=== PATIENT | male | born 1975 | race Caucasian/White ===

== ENCOUNTER 2020-11-27 18:23 | Emergency (ER) | payer MEDICARE, OTHER, SELFPAY ==
--- NOTE | ~2020-11-27 | XR_ITS ---
EXAMINATION: XR ABDOMEN KUB CLINICAL INDICATION: Abdominal pain, nausea and vomiting COMPARISON: None TECHNIQUE: 2 views of the abdomen. FINDINGS: The bowel gas pattern is normal with no evidence of ileus or obstruction, although there is a paucity of gaseous small bowel. No unusual soft tissue calcifications are noted. Left total hip arthroplasty. Subchondral crescentic sclerotic line within the superior RIGHT femoral head reflects avascular necrosis. No evidence of cortical collapse. XR/XR KUB IMPRESSION: No evidence of bowel obstruction
[2020-11-27 18:47] VITALS: BP 149/87; PULSE 115; RESP 18; TEMP 36.8; O2SAT 96; BMI 34.3
[2020-11-27 22:11] LABS: Basophils Absolute Auto 0.1 X10*3/uL (0.0-0.2); Basophils Percent Auto 0.8 % (0-2); Eosinophils Absolute Auto 0.1 X10*3/uL (0.0-0.4); Eosinophils Percent Auto 1.4 % (0-4); Hematocrit 45.2 % (42-52); Imm Gran Abs Auto 0.02 X10*3/uL (0.00-0.03); Imm Gran Pct Auto 0.2 % (0.0-0.4); PLT CLUMP 1; SCAN SMEAR FLAG 1
[2020-11-27 22:13] LABS: Hemoglobin 15.8 g/dl (14.0-18.0); Lymphocytes Absolute Auto 1.2 X10*3/uL (1.2-4.9); Lymphocytes Percent Auto 13.9 % (20-40); Mean Corpuscular Hemoglobin 31.9 pg (27.0-33.0); Mean Corpuscular Volume 91.3 fL (80-98); Mean Platelet Volume 10.9 fL (9.4-12.4); Monocytes Absolute Auto 0.6 X10*3/uL (0.1-1.2); Monocytes Percent Auto 7.2 % (2-11); Neutrophils Absolute Auto 6.5 X10*3/uL (2.0-8.3); Neutrophils Percent Auto 76.5 % (45-73); Platelet Count 122 X10*3/uL (160-400); Red Blood Count 4.95 X10*6/uL (4.60-5.80); White Blood Count 8.5 X10*3/uL (4.8-10.8)
[2020-11-27 22:14] LABS: MANUAL DIFF FLAG NO
--- NOTE | 2020-11-27 22:15 | ED_ITS ---
HPI - Abdominal Pain General Chief Complaint: Abdominal Pain Stated Complaint: abd pain - chrome disease Time Seen by Provider: 11/27/20 21:43 Source: patient and family Mode of arrival: ambulatory Limitations: no limitations History of Present Illness HPI narrative: 45 y/o male with history of Crohn's disease, history of bowel obstrcutions, s/p 30 abdominal surgeries, history of hip AVN with plan for right hip replacement, currently off of all medications for his Crohn's who presents to the ER with 2 weeks of right sided abdominal pain. He lives in [place] where he gets his care and is in the process of relocating here. [place] 2 [place] ago when the pain started. He had a CT scan with oral contrast that showed some inflamed bowel. He was started on Cipro and Flagyl and remains on it for another few days. He reports ongoing pain with some nausea, vomiting and diarrhea. His stool is described as broken up fish food. No blood. He denies fever, chills, urinary symptoms. MD elicited complaint: abdominal pain Pertinent past history: other (Crohns) Onset (ago): week(s) (2) Pain Consistency: constant Location: RUQ and RLQ Severity: moderate Pain scale (0-10): 7 Quality: cramping and stabbing Radiation: none Migration to: no migration Exacerbating factors: nothing Relieving factors: nothing Context: recent antibiotic use and history of similar episodes Associated symptoms: nausea, vomiting and diarrhea Related Data Previous Rx's Medication Instructions Recorded oxycodone 5 mg PO Q6H PRN #5 tab 11/28/20 Allergies Allergy/AdvReac Type Severity Reaction Status Date / Time diazepam [From VALIUM] Allergy Severe AGITATION Unverified 01/20/20 19:09 morphine [MORPHINE] Allergy Intermediate SWELLING Unverified 01/20/20 19:09 Penicillins [PENICILLINS] Allergy Unknown ANAPHYLAXIS Unverified 01/20/20 19:09 Review of Systems Review of Systems Constitutional: No Fever, No Chills ENT/Mouth: No sore throat, No Rhinorrhea, No Swallowing Difficulty Eyes: No Eye Pain, No Swelling, No Redness Cardiovascular: No Chest Pain, No SOB, No Orthopnea, No Edema Respiratory: No Cough, No Sputum, No Wheezing, No dyspnea Gastrointestinal: + Nausea, + Vomiting, + Diarrhea, + abdominal Pain, No Hematochezia, No Melena Genitourinary: No Dysuria, No Urinary Frequency, No Hematuria Musculoskeletal: No joint pain, No Myalgias Skin: No Skin Lesions, No rash Neuro: No Weakness, No Numbness, No Dizziness, No Headache Psych: No Anxiety/Panic, No Depression Heme/Lymph: No Bruising, No Lymphadenopathy Endocrine: No Polyuria, No Polydipsia Physical Exam Vital Signs: Vital Signs: Last Vital Signs Temp 98.3 F 11/27/20 18:47 Pulse 115 H 11/27/20 18:47 Resp 20 11/27/20 23:48 BP 149/87 H 11/27/20 18:47 Pulse Ox 96 11/27/20 18:47 Body Mass Index 34.3 Appearance: Alert. Oriented X3. No acute distress. Eyes: Pupils equal, round and reactive to light. ENT: Pharynx normal. Neck: Normal inspection. Neck supple. CVS: Normal heart rate and rhythm. Pulses normal. Respiratory: No respiratory distress. Breath sounds normal. Abdomen: Well healed surgical scars c/w prior operations, Soft with right sided tenderness, +guarding, no rebound, decreased but present +BS x4 Skin: Skin warm and dry. Normal skin color. Normal skin turgor. No rashes. Extremities: No lower extremity edema. Neuro: Oriented X 3. No motor deficit. No sensory deficit. Course Course Course Narrative: 45 y/o male with a complex GI history with multiple surgeries and Crohn's disease who presents with 2 weeks of ongoing abdominal pain, worsened today. N/V/D. Pain is not as bad as when he had bowel obstructions in the past. He does not want a CT scan given he has had multiple CT scans recently. He appears comfortable and there is no significant distention or tympany on exam. Reevaluation(s) Reevaluation #1: KUB did not show any obstruction. Labs unremarkable. 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 He again reports he does not want a CT scan and that he would like to be discharged so he can go to [place] to see his GI doctor tomorrow. He has not had any vomiting and his pain is improved with IV Pain medication. He is tolerating ice water. Tachycardia resolved. He is stable for discharge home. MDM - Abdominal Pain Lab Data Result diagrams: 11/27/20 21:55 11/27/20 21:55 Labs: Lab Results 11/27/20 11/27/20 11/27/20 Range/Units 21:55 21:55 21:55 WBC 8.5 (4.8-10.8) X10*3/uL RBC 4.95 (4.60-5.80) X10*6/uL Hgb 15.8 (14.0-18.0) g/dl Hct 45.2 (42-52) % MCV 91.3 (80-98) fL MCH 31.9 (27.0-33.0) pg MCHC 35.0 (31.0-36.0) g/dl RDW 14.0 (11.0-16.0) % Plt Count 122 L (160-400) X10*3/uL MPV 10.9 (9.4-12.4) fL Immature Gran % (Auto) 0.2 (0.0-0.4) % Neut % (Auto) 76.5 H (45-73) % Lymph % (Auto) 13.9 L (20-40) % [place] % (Auto) 7.2 (2-11) % Eos % (Auto) 1.4 (0-4) % Baso % (Auto) 0.8 (0-2) % Lymph # (Auto) 1.2 (1.2-4.9) X10*3/uL [place] # (Auto) 0.6 (0.1-1.2) X10*3/uL Eos # (Auto) 0.1 (0.0-0.4) X10*3/uL Baso # (Auto) 0.1 (0.0-0.2) X10*3/uL Abs Immat Gran (auto) 0.02 (0.00-0.03) X10*3/uL Absolute Neuts (auto) 6.5 (2.0-8.3) X10*3/uL Absolute Nucleated RBC 0.000 (0.0-0.012) X10*3/uL Nucleated RBC % (auto) 0.0 (0.0-0.2) /100WBC ESR 7 (0-15) MM/HR Sodium 138 (135-145) mmol/L Potassium 4.5 (3.3-5.1) mmol/L Chloride 109 H (96-108) mmol/L Carbon Dioxide 19 L (22-29) mmol/L Anion Gap 15 (12-20) BUN 6 L (9-16) mg/dL Creatinine 0.81 (0.5-1.4) mg/dL Estim Creat Clear Calc 163.8 Estimated GFR > 60 Random Glucose 131 H (60-115) mg/dL Lactic Acid (0.5-2.0) mmol/L Calcium 9.1 (8.4-10.2) mg/dL Total Bilirubin 2.1 H (0.0-1.0) mg/dL AST 27 (5-37) U/L ALT 17 (0-40) U/L Alkaline Phosphatase 131 H (39-117) U/L C-Reactive Protein 0.11 (< or = 0.50) mg/dL Total Protein 8.1 H (6.5-8.0) g/dL Albumin 3.7 (3.5-5.0) g/dL Lipase 19 (8-78) U/L 11/27/20 Range/Units 21:55 WBC (4.8-10.8) X10*3/uL RBC (4.60-5.80) X10*6/uL Hgb (14.0-18.0) g/dl Hct (42-52) % MCV (80-98) fL MCH (27.0-33.0) pg MCHC (31.0-36.0) g/dl RDW (11.0-16.0) % Plt Count (160-400) X10*3/uL MPV (9.4-12.4) fL Immature Gran % (Auto) (0.0-0.4) % Neut % (Auto) (45-73) % Lymph % (Auto) (20-40) % [place] % (Auto) (2-11) % Eos % (Auto) (0-4) % Baso % (Auto) (0-2) % Lymph # (Auto) (1.2-4.9) X10*3/uL [place] # (Auto) (0.1-1.2) X10*3/uL Eos # (Auto) (0.0-0.4) X10*3/uL Baso # (Auto) (0.0-0.2) X10*3/uL Abs Immat Gran (auto) (0.00-0.03) X10*3/uL Absolute Neuts (auto) (2.0-8.3) X10*3/uL Absolute Nucleated RBC (0.0-0.012) X10*3/uL Nucleated RBC % (auto) (0.0-0.2) /100WBC ESR (0-15) MM/HR Sodium (135-145) mmol/L Potassium (3.3-5.1) mmol/L Chloride (96-108) mmol/L Carbon Dioxide (22-29) mmol/L Anion Gap (12-20) BUN (9-16) mg/dL Creatinine (0.5-1.4) mg/dL Estim Creat Clear Calc Estimated GFR Random Glucose (60-115) mg/dL Lactic Acid 1.5 (0.5-2.0) mmol/L Calcium (8.4-10.2) mg/dL Total Bilirubin (0.0-1.0) mg/dL AST (5-37) U/L ALT (0-40) U/L Alkaline Phosphatase (39-117) U/L C-Reactive Protein (< or = 0.50) mg/dL Total Protein (6.5-8.0) g/dL Albumin (3.5-5.0) g/dL Lipase (8-78) U/L Discharge Plan Discharge Clinical Impression: Abdominal pain Qualifiers: Abdominal location: unspecified location Qualified Code(s): R10.9 - Unspecified abdominal pain Patient Disposition: Home, Self-Care Instructions: Crohn Disease (ED), Abdominal Pain (ED) Additional Instructions: Your lab workup today was largely unremarkable. Your abdominal x-ray was normal. FOLLOW UP WITH YOUR GI DOCTOR TOMORROW. If you develop new or worsening symptoms call 911 or come back to the ER for further evaluation. Prescriptions: New oxycodone 5 mg tablet 5 mg PO Q6H PRN (Reason: pain) Qty: 5 RF: 0 PMFSH Past Medical History Attestation statement: The following information was validated with the patient. Medical History Acute Crohn's disease Avascular necrosis HTN (hypertension) Surgical History (Updated 11/27/20 @ 18:52 by Elizabeth Kumari) History of bowel resection Hx of cholecystectomy S/P shoulder surgery Social History Social History Advance Directives: No Advance Directives Information Provided: No
[2020-11-27] MEDS: Pantoprazole Sodium 40 MG/10 ML VIAL IVPUSH (22:29)
[2020-11-27] MEDS: HYDROmorphone HCl 1 MG/ML SYRINGE IVPUSH ×2 (22:29→23:48)
[2020-11-27] MEDS: 0.9 % Sodium Chloride 1,000 ML 999 ML IVCONT ×2 (22:30→22:41)
[2020-11-27 22:33] LABS: Lactic Acid 1.5 mmol/L (0.5-2.0)
[2020-11-27 22:40] LABS: Alanine Aminotransferase 17 U/L (0-40); Albumin Level 3.7 g/dL (3.5-5.0); Alkaline Phosphatase 131 U/L (39-117); Anion Gap 15 (12-20); Aspartate Amino Transferase 27 U/L (5-37); Bilirubin Total 2.1 mg/dL (0.0-1.0); Blood Urea Nitrogen 6 mg/dL (9-16); C Reactive Protein 0.11 mg/dL (< or = 0.50); Calcium 9.1 mg/dL (8.4-10.2); Carbon Dioxide 19 mmol/L (22-29); Chloride 109 mmol/L (96-108); Creatinine Clr Calc Pharmacy 163.8; Estimated Glomerular Filt Rate > 60; Glucose Random 131 mg/dL (60-115); Lipase 19 U/L (8-78); Potassium 4.5 mmol/L (3.3-5.1); Sodium 138 mmol/L (135-145); Total Protein 8.1 g/dL (6.5-8.0)
[2020-11-27 23:03] LABS: Erythrocyte Sedimentation Rate 7 MM/HR (0-15)
[2020-11-27 23:48] VITALS: RESP 20
[2020-11-28 00:35] VITALS: BP 131/94; PULSE 111; RESP 16; O2SAT 99
== END 2020-11-28 02:17 | disposition home or self-care (01) ==
PROVIDERS: Physician Assistant; Emergency Provider Student in an Organized Health Care Education/Training Program
DX: R10.9 Unspecified abdominal pain (principal); K50.90 Crohn's disease, unspecified, without complications; I10 Essential (primary) hypertension; Z90.49 Acquired absence of other specified parts of digestive tract
CPT/HCPCS: 36415; 74018; 80053; 83605; 83690; 85025; 85652; 86140; 87040; 96361; 96374; 96375; 96376; 99284; J1170; J2405

== ENCOUNTER 2020-12-03 14:24 | Emergency (ER) | payer MEDICARE, OTHER, SELFPAY ==
[2020-12-03 15:04] VITALS: BP 158/87; PULSE 107; RESP 18; TEMP 35.8; O2SAT 100; BMI 33.7
--- NOTE | 2020-12-03 17:22 | ECG_ITS ---
Test Reason : SYNCOPE Blood Pressure : / mmHG Vent. Rate : 100 BPM Atrial Rate : 100 BPM P-R Int : 144 ms QRS Dur : 094 ms QT Int : 372 ms P-R-T Axes : 028 022 006 degrees QTc Int : 479 ms Normal sinus rhythm Inferior infarct (cited on or before 03-DEC-2020) Abnormal ECG When compared with ECG of 22-OCT-2016 14:28, No significant change was found Referred By: Wesly Orellana Electronically Signed By:Nuno Sky
--- NOTE | 2020-12-03 17:23 | ED_ITS ---
HPI - General Adult General Chief complaint: General Medical Stated complaint: seizure Time Seen by Provider: 12/03/20 17:06 Source: patient Mode of arrival: ambulatory Limitations: no limitations History of Present Illness HPI narrative: 45-year-old male who presents emergency department for evaluation of syncopal episode and abdominal pain secondary to his Crohn's disease The patient has a history of Crohn's disease with multiple surgeries and multiple episodes of small-bowel obstructions in the past. He states that he has been having a flare-up of his Crohn's disease over the past 2 weeks and has been hav ing right lower quadrant abdominal pain. The patient lives in the [place] area is in the process of moving to this area. He states that his vocal music teacher in [place] cancel is planning on doing a colonoscopy on him next week since she believes that he has a ?tight area causing his abdominal pain. The patient had recent CT scan in the your. The patient was seen here on 11/27/2020 with abdominal pain. The patient had a KUB that showed no bowel obstruction and unremarkable blood work. He states that he was treated with pain medications and felt better at the time of discharge. Patient states that he woke up this morning with increased pain in his right lower quadrant area. He states the pain was severe. The patient then had a syncopal episode. According to the patient, his described the syncopal episode as the patient turning rigid and the patient then dropped. The patient states he has had similar episodes in the past and is being treated for possible seizure/pseudoseizures with [place] and he does have a neurologist in [place]. Patient states that the syncopal episode was brief and lasted 15 seconds. He did not have any postictal period. He does not have any memory of any prodromal symptoms. He is currently complaining right lower quadrant pain which he describes the abdominal pain as a constant, pressure-like sensation which is 7/10. The patient denied fever, chills, nausea, vomiting or change in his bowel movements. Related Data Previous Rx's Medication Instructions Recorded oxycodone 5 mg tablet 5 mg PO Q6H PRN #5 tab 11/28/20 Allergies Allergy/AdvReac Type Severity Reaction Status Date / Time diazepam [From VALIUM] Allergy Severe AGITATION Verified 12/03/20 17:48 morphine [MORPHINE] Allergy Intermediate SWELLING Verified 12/03/20 17:48 Penicillins [PENICILLINS] Allergy Unknown ANAPHYLAXIS Verified 12/03/20 17:48 Review of Systems Review of Systems: Yes all other systems are reviewed and are negative [facility] Past Medical History [facility] Narrative: Social history: Patient is . He lives in the [place] and is in the process of moving to this area. He denies tobacco, alcohol and drug use. Medical History Acute Crohn's disease Avascular necrosis HTN (hypertension) Surgical History History of bowel resection Hx of cholecystectomy S/P shoulder surgery Social History Social History Advance Directives: No Advance Directives Information Provided: Yes Physical Exam Vital Signs: Vital Signs: Last Vital Signs Temp 98.7 F 12/03/20 20:11 Pulse 93 12/03/20 21:19 Resp 12 12/03/20 21:19 BP 152/97 H 12/03/20 21:19 Pulse Ox 97 12/03/20 21:19 Body Mass Index 33.7 Const: General: cooperative and no acute distress Orientation/consciousness: oriented to person and oriented to place Limitations: no limitations HENMT: Head: Yes normal to inspection, Yes normocephalic and Yes atraumatic Ears: external ears normal General nose exam: Normal external nose present Face and sinus: Yes normal facial exam Mouth: Normal oral and palatal mucosa present Throat: Yes posterior oropharynx normal Eyes: General: appearance normal, both eyes and all related structures Pupils: Equal, round and reactive pupils present Neck: Neck: Yes normal visual inspection, Yes no lymphadenopathy, Yes trachea midline and Yes supple Chest: Chest palpation & inspection: normal inspection of the chest and normal palpation of entire chest wall Resp: Effort & Inspection: normal respiratory effort and able to speak in complete sentences Auscultation: clear to auscultation bilaterally Cardio: Rate: regular rate Rhythm: regular rhythm Heart sounds: S1 normal heart sound present, S2 normal heart sound present and no murmurs GI: Inspection: Yes normal to inspection Palpation (GI): Soft to palpation, Tenderness to palpation present (GI) in the RLQ (Moderate); Negative for with no rebound tenderness and no guarding Auscultation: normal bowel sounds : General: Yes no CVA tenderness Back/Spine/Pelvis: Back: no CVA tenderness Skin: General skin exam: no rashes or lesions noted Neuro: General: oriented to person and oriented to place Cranial nerves: Yes CN's II-XII intact bilaterally and Yes Equal, round and reactive pupils present Cognition (Neuro): normal cognition Motor exam (neuro): 5/5 motor strength present throughout Extrem: General: Yes normal to inspection Psych: Appearance: grossly normal Speech and movement: Normal speech and movement present Affect: normal affect Attitude: cooperative Thought process: Normal thought process present Thought content: Normal thought content present Course Course Course Narrative: 45-year-old male who presents emergency department for evaluation of right lower quadrant abdominal pain and a syncopal episode. Patient's abdominal pain is related to his Crohn's disease and is currently being evaluated by his vocal music teacher in your and is scheduled for a colonoscopy next week. The patient's syncopal episode was preceded by severe abdominal pain and lasted approximately 15 seconds. My impression is that this was a vasovagal event secondary to his pain. The patient is having right lower quadrant pain and tenderness but I believe this is related to his Crohn's disease. I did order laboratory evaluation to include CBC, CMP, lipase, troponin and EKG. I do not think that the patient needs any imaging studies at this time. The patient will be treated with Pepcid 20 mg IV, Dilaudid 1 mg IV, and Zofran 12 mg IV. He will also be given normal saline x1 L. He states that this is the regimen that he has received in the past when he has had pain related to his Crohn's disease. 2123: Patient's laboratory evaluation was unremarkable except for an elevated bili remove 2.3, sat similar elevations in the past. Patient got only minimal relief with the 1st dose of medications. He was given a 2nd dose Dilaudid 1 mg IV. He also received Reglan 10 mg IV and Benadryl 25 mg IV. He is feeling better and is requesting to go home. The patient will be discharged home he was advised to follow up with his GI doctor for further evaluation. The patient was given verbal and printed instructions prior to discharge. The patient was advised to follow-up with his PCP in 2 days and to return to the emergency department if his symptoms get worse or if he develops any new symptoms that are concerning to him. Medical Decision Making Lab Data Result diagrams: 12/03/20 18:22 12/03/20 18:22 Labs: Lab Results 12/03/20 12/03/20 12/03/20 Range/Units 17:35 18:22 18:22 WBC 5.3 (4.8-10.8) X10*3/uL RBC 4.34 L (4.60-5.80) X10*6/uL Hgb 13.8 L (14.0-18.0) g/dl Hct 39.7 L (42-52) % MCV 91.5 (80-98) fL MCH 31.8 (27.0-33.0) pg MCHC 34.8 (31.0-36.0) g/dl RDW 13.7 (11.0-16.0) % Plt Count 101 L (160-400) X10*3/uL MPV 10.9 (9.4-12.4) fL Immature Gran % (Auto) 0.6 H (0.0-0.4) % Neut % (Auto) 74.1 H (45-73) % Lymph % (Auto) 18.1 L (20-40) % [place] % (Auto) 5.8 (2-11) % Eos % (Auto) 0.6 (0-4) % Baso % (Auto) 0.8 (0-2) % Lymph # (Auto) 1.0 L (1.2-4.9) X10*3/uL [place] # (Auto) 0.3 (0.1-1.2) X10*3/uL Eos # (Auto) 0.0 (0.0-0.4) X10*3/uL Baso # (Auto) 0.0 (0.0-0.2) X10*3/uL Abs Immat Gran (auto) 0.03 (0.00-0.03) X10*3/uL Absolute Neuts (auto) 3.9 (2.0-8.3) X10*3/uL Absolute Nucleated RBC 0.000 (0.0-0.012) X10*3/uL Nucleated RBC % (auto) 0.0 (0.0-0.2) /100WBC Smear Tech's Comments VERIFIED Sodium 137 (135-145) mmol/L Potassium 4.1 (3.3-5.1) mmol/L Chloride 107 (96-108) mmol/L Carbon Dioxide 20 L (22-29) mmol/L Anion Gap 14 (12-20) BUN 12 D (9-16) mg/dL Creatinine 0.77 (0.5-1.4) mg/dL Estim Creat Clear Calc 170.8 Estimated GFR > 60 Random Glucose 115 (60-115) mg/dL Calcium 8.9 (8.4-10.2) mg/dL Total Bilirubin 2.3 H (0.0-1.0) mg/dL AST 30 (5-37) U/L ALT 17 (0-40) U/L Alkaline Phosphatase 112 (39-117) U/L Troponin I High Sens < 3.5 (<3.5-35.0) ng/L Total Protein 7.5 (6.5-8.0) g/dL Albumin 3.5 (3.5-5.0) g/dL Lipase 26 (8-78) U/L ECG Data Attestation: I personally reviewed and interpreted this ECG as follows: Interpretation: 1732: Sinus tachycardia with a rate of 100, normal OH interval, QRS duration, prolonged QTC of 479 milliseconds. Q-wave noted in lead 3 and AVF, inverted T-wave lead 3 and V1, no PACs, no PVCs, no ST segment elevation, no ST segment depression. No old EKG for comparison. Discharge Plan Discharge Clinical Impression: Crohn's disease Abdominal pain Qualifiers: Abdominal location: right lower quadrant Qualified Code(s): R10.31 - Right lower quadrant pain Patient Disposition: Home, Self-Care Instructions: Abdominal Pain (ED) Additional Instructions: Your laboratory evaluation was unremarkable and unchanged from your previous visit. Follow-up with your doctor in 2 days. Please return to the emergency department if your symptoms get worse or if you develop any symptoms that are concerning to you. Prescriptions: No Action oxycodone 5 mg tablet 5 mg PO Q6H PRN (Reason: pain) Qty: 5 RF: 0
[2020-12-03] MEDS: HYDROmorphone HCl 1 MG/ML SYRINGE IVPUSH ×2 (17:56→20:15)
[2020-12-03] MEDS: 0.9 % Sodium Chloride 1,000 ML 999 ML IV (17:57)
[2020-12-03] MEDS: Famotidine/PF 20 MG/2 ML VIAL IVPUSH (17:57)
--- NOTE | 2020-12-03 17:58 | PC.NURSE ---
IV inserted. pt medicated for nausea and pain
[2020-12-03 18:22] VITALS: BP 151/106; PULSE 100; RESP 18; TEMP 36.9; O2SAT 98
[2020-12-03 18:29] LABS: Troponin-I High Sensitivity < 3.5 ng/L (<3.5-35.0)
[2020-12-03 18:38] LABS: Hematocrit 39.7 % (42-52); MANUAL DIFF FLAG SCAN; Mean Corpuscular Volume 91.5 fL (80-98); PLT CLUMP 1; Red Blood Count 4.34 X10*6/uL (4.60-5.80); SCAN SMEAR FLAG 1
[2020-12-03 18:40] LABS: Basophils Percent Auto 0.8 % (0-2); Eosinophils Percent Auto 0.6 % (0-4); Hemoglobin 13.8 g/dl (14.0-18.0); Imm Gran Abs Auto 0.03 X10*3/uL (0.00-0.03); Imm Gran Pct Auto 0.6 % (0.0-0.4); Lymphocytes Percent Auto 18.1 % (20-40); Mean Corpuscular HGB Conc 34.8 g/dl (31.0-36.0); Mean Corpuscular Hemoglobin 31.8 pg (27.0-33.0); Mean Platelet Volume 10.9 fL (9.4-12.4); Monocytes Absolute Auto 0.3 X10*3/uL (0.1-1.2); Monocytes Percent Auto 5.8 % (2-11); Neutrophils Absolute Auto 3.9 X10*3/uL (2.0-8.3); Neutrophils Percent Auto 74.1 % (45-73); Platelet Count 101 X10*3/uL (160-400); Red Cell Distribution Width 13.7 % (11.0-16.0); White Blood Count 5.3 X10*3/uL (4.8-10.8)
[2020-12-03 18:46] LABS: SLIDE REVIEW VERIFIED
--- NOTE | 2020-12-03 18:56 | PC.NURSE ---
Pt reporting that he continues to have pain and nausea. MD aware.
[2020-12-03 18:59] LABS: Alanine Aminotransferase 17 U/L (0-40); Albumin Level 3.5 g/dL (3.5-5.0); Alkaline Phosphatase 112 U/L (39-117); Anion Gap 14 (12-20); Aspartate Amino Transferase 30 U/L (5-37); Bilirubin Total 2.3 mg/dL (0.0-1.0); Blood Urea Nitrogen 12 mg/dL (9-16); Calcium 8.9 mg/dL (8.4-10.2); Carbon Dioxide 20 mmol/L (22-29); Chloride 107 mmol/L (96-108); Creatinine Clr Calc Pharmacy 170.8; Estimated Glomerular Filt Rate > 60; Glucose Random 115 mg/dL (60-115); Lipase 26 U/L (8-78); Potassium 4.1 mmol/L (3.3-5.1); Sodium 137 mmol/L (135-145); Total Protein 7.5 g/dL (6.5-8.0)
[2020-12-03 20:11] VITALS: BP 169/92; PULSE 89; RESP 15; TEMP 37.1; O2SAT 98
[2020-12-03] MEDS: Metoclopramide HCl 10 MG/2 ML VIAL IVPUSH (20:15)
[2020-12-03] MEDS: diphenhydrAMINE HCL 50 MG/ML VIAL IVPUSH (20:15)
[2020-12-03 21:19] VITALS: BP 152/97; PULSE 93; RESP 12; O2SAT 97
== END 2020-12-03 21:45 | disposition home or self-care (01) ==
PROVIDERS: Emergency Provider Emergency Medicine Emergency Medical Services
DX: K50.10 Crohn's disease of large intestine without complications (principal); R55 Syncope and collapse; R10.31 Right lower quadrant pain
CPT/HCPCS: 36415; 80053; 83690; 84484; 85025; 93005; 96365; 96375; 99284; J1170; J1200; J2405; J2765

== ENCOUNTER 2023-11-24 15:38 | Emergency (ER) | payer SELFPAY ==
--- NOTE | 2023-11-24 15:39 | ECG_ITS ---
Test Reason : CP Blood Pressure : / mmHG Vent. Rate : 110 BPM Atrial Rate : 110 BPM P-R Int : 140 ms QRS Dur : 094 ms QT Int : 342 ms P-R-T Axes : 037 029 021 degrees QTc Int : 462 ms Sinus tachycardia Possible Inferior infarct (cited on or before 03-DEC-2020) Abnormal ECG When compared with ECG of 03-DEC-2020 17:32, No significant change was found Referred By: Aline Dumont Electronically Signed By:LOUISE DIAZ
[2023-11-24 16:04] VITALS: BP 129/94; PULSE 112; RESP 18; TEMP 37.2; O2SAT 98; BMI 33.2
--- NOTE | 2023-11-24 16:07 | ED_ITS ---
HPI - Abdominal Pain General Chief Complaint: Abdominal Pain Stated Complaint: CP, back pain Related Data Previous Rx's ?Medication ?Instructions ?Recorded oxycodone 5 mg tablet 5 mg PO Q6H PRN pain #5 tabs 11/28/20 Allergies Allergy/AdvReac Type Severity Reaction Status Date / Time diazepam [From VALIUM] Allergy Severe AGITATION Verified 11/24/23 16:08 morphine [MORPHINE] Allergy Intermediate SWELLING Verified 11/24/23 16:08 Penicillins [PENICILLINS] Allergy Unknown ANAPHYLAXIS Verified 11/24/23 16:08 [facility] Past Medical History Medical History Acute Crohn's disease Avascular necrosis HTN (hypertension) Surgical History History of bowel resection Hx of cholecystectomy S/P shoulder surgery Social History Social History Advance Directives: No Advance Directives Information Provided: No Do you have a plan to hurt others: No Plan Physical Exam ED Vital Signs: Vital Signs - 24 hr 11/24/23 16:04 Temperature 98.9 F Pulse Rate 112 H Respiratory Rate 18 Blood Pressure 129/94 H Pulse Oximetry 98 Oxygen Delivery Method Room Air BMI result Body Mass Index 33.2 Course Course Course Narrative: This is an RME: Additional HPI, ROS, PE not included below will be deferred to primary provider. RME assessment and note performed by: Aline Dumont PA-C This is a [id number], with a hx of crohn's disease, avascular necrosis, HTN, who presents to the ER with complaints of abdominal pain, nausea x 3 weeks. reporting body aches. Pain worsened today and felt pain throughout his chest. Reporting sweats, no chills. hx of crohns, sxs feel similar to flare ups. Plan: Labs, UA, viral swabs, further er eval needed Reevaluation(s) Reevaluation #1: Patient left without completing treatment. Medical Decision Making Lab Data 11/24/23 16:18 11/24/23 16:18 Labs: Lab Results 11/24/23 Range/Units 16:18 WBC 5.1 (4.8-10.8) X10*3/uL RBC 4.25 L (4.60-5.80) X10*6/uL Hgb 13.7 L (14.0-18.0) g/dl Hct 39.1 L (42.0-52.0) % MCV 92.0 (80.0-98.0) fL MCH 32.2 (27.0-33.0) pg MCHC 35.0 (31.0-36.0) g/dl RDW 13.7 (11.0-16.0) % Plt Count 84 L (160-400) X10*3/uL MPV 10.0 (9.4-12.4) fL Immature Gran % (Auto) 0.2 (0.0-0.4) % Neut % (Auto) 71.8 (45-73) % Lymph % (Auto) 18.5 L (20-40) % [place] % (Auto) 7.1 (2-11) % Eos % (Auto) 1.8 (0-4) % Baso % (Auto) 0.6 (0-2) % Lymph # (Auto) 0.9 L (1.2-4.9) X10*3/uL [place] # (Auto) 0.4 (0.1-1.2) X10*3/uL Eos # (Auto) 0.1 (0.0-0.4) X10*3/uL Baso # (Auto) 0.0 (0.0-0.2) X10*3/uL Abs Immat Gran (auto) 0.01 (0.00-0.03) X10*3/uL Absolute Neuts (auto) 3.6 (2.0-8.3) x10*3/uL Absolute Nucleated RBC 0.000 (0.0-0.012) X10*3/uL Nucleated RBC % (auto) 0.0 (0.0-0.2) /100WBC Sodium 137 (135-145) mmol/L Potassium 3.6 (3.3-5.1) mmol/L Chloride 108 (96-108) mmol/L Carbon Dioxide 20 L (22-29) mmol/L Anion Gap 13 (12-20) BUN 8 L (9-16) mg/dL Creatinine 0.92 (0.5-1.4) mg/dL Estim Creat Clear Calc 141.1 Estimated GFR > 60 Random Glucose 141 H (60-115) mg/dL Calcium 9.0 (8.4-10.2) mg/dL Magnesium 1.5 L (1.6-2.6) mg/dL Total Bilirubin 1.6 H (0.0-1.0) mg/dL Direct Bilirubin 0.5 (0.0-0.5) mg/dL AST 25 (5-37) U/L ALT 21 (0-40) U/L Alkaline Phosphatase 86 (39-117) U/L Troponin I High Sens < 2.7 (<3.5-35.0) ng/L Total Protein 7.0 (6.5-8.0) g/dL Albumin 3.3 L (3.5-5.0) g/dL Lipase 14 (8-78) U/L Influenza Type A (PCR) NEGATIVE (Negative) Influenza Type B (PCR) NEGATIVE (Negative) RSV RNA Qual (PCR) NEGATIVE (Negative) SARS-CoV-2 RNA (RT-PCR) NEGATIVE (Negative) Discharge Plan Discharge Clinical Impression: Abdominal pain Patient Disposition: Left W/O Completing Treatment Prescriptions: No Action oxycodone 5 mg tablet 5 mg PO Q6H PRN (Reason: pain) Qty: 5 0RF Rx Instructions: partial fill ok Discharge Date/Time: 11/24/23 18:31
[2023-11-24 16:22] LABS: MANUAL DIFF FLAG NO
[2023-11-24 16:30] LABS: Basophils Percent Auto 0.6 % (0-2); Eosinophils Absolute Auto 0.1 X10*3/uL (0.0-0.4); Eosinophils Percent Auto 1.8 % (0-4); Hematocrit 39.1 % (42.0-52.0); Hemoglobin 13.7 g/dl (14.0-18.0); Imm Gran Abs Auto 0.01 X10*3/uL (0.00-0.03); Imm Gran Pct Auto 0.2 % (0.0-0.4); Lymphocytes Absolute Auto 0.9 X10*3/uL (1.2-4.9); Lymphocytes Percent Auto 18.5 % (20-40); Mean Corpuscular Hemoglobin 32.2 pg (27.0-33.0); Monocytes Absolute Auto 0.4 X10*3/uL (0.1-1.2); Monocytes Percent Auto 7.1 % (2-11); Neutrophils Absolute Auto 3.6 x10*3/uL (2.0-8.3); Neutrophils Percent Auto 71.8 % (45-73); Red Blood Count 4.25 X10*6/uL (4.60-5.80); Red Cell Distribution Width 13.7 % (11.0-16.0); White Blood Count 5.1 X10*3/uL (4.8-10.8)
[2023-11-24 16:39] LABS: Alanine Aminotransferase 21 U/L (0-40); Albumin Level 3.3 g/dL (3.5-5.0); Alkaline Phosphatase 86 U/L (39-117); Anion Gap 13 (12-20); Aspartate Amino Transferase 25 U/L (5-37); Bilirubin Direct 0.5 mg/dL (0.0-0.5); Bilirubin Total 1.6 mg/dL (0.0-1.0); Blood Urea Nitrogen 8 mg/dL (9-16); Carbon Dioxide 20 mmol/L (22-29); Chloride 108 mmol/L (96-108); Creatinine Clr Calc Pharmacy 141.1; Estimated Glomerular Filt Rate > 60; Glucose Random 141 mg/dL (60-115); Lipase 14 U/L (8-78); Magnesium 1.5 mg/dL (1.6-2.6); Potassium 3.6 mmol/L (3.3-5.1); Sodium 137 mmol/L (135-145)
[2023-11-24 16:47] LABS: Platelet Count 84 X10*3/uL (160-400)
[2023-11-24 16:49] LABS: Troponin-I High Sensitivity < 2.7 ng/L (<3.5-35.0)
[2023-11-24 17:01] LABS: Influenza A PCR NEGATIVE (Negative); Influenza B PCR NEGATIVE (Negative); Resp Syncy Virus RNA Qual PCR NEGATIVE (Negative); SARS COV2 PCR INHOUSE NEGATIVE (Negative)
--- OUTSIDE RECORDS SUMMARY | 2023-11-24 18:31 | XMS_ITS ---
Author Name Physician MD LIDYA [facility] Care Team Providers Care Gear Shaver Set Up Operator Name Role Phone Non Staff, Physician Primary Care Physician [phone] Problems Encounter Diagnosis Problems * Urgent Desire to Urinate Status:Active. * Urinary Frequency Status:Active. Provider * Urgent Desire to Urinate Status:Active. * Urinary Frequency Status:Active. Encounter Diagnosis Problems * Urgent Desire to Urinate Status:Active. * Urinary Frequency Status:Active. Provider * Urgent Desire to Urinate Status:Active. * Urinary Frequency Status:Active. Allergies and Intolerances This section is contact center representative of the current allergy information, at the time of the CCD generation. In the case of regeneration of the CCD, the allergy information may not reflect the state of known allergies at the time of the CCD's subject visit. * Valium causes Moderate Hives. Status:Active. * PENICILLINS causes Moderate Hives. Status:Active. * Latex Allergy has not been assessed. * IV Contrast Allergy has not been assessed. Social History CCDA Social History from 08/31/2023 12:28 PM: * Tobacco Use? : Denies Ever Smoked Vital Signs BP from 08/31/2023 12:11 PM: * BP : 162/90 Pulse from 08/31/2023 12:04 PM: * Pulse : 96 Pulse Ox from 08/31/2023 12:04 PM: * Pulse Ox (%) : 98 Respirations from 08/31/2023 12:04 PM: * Respirations : 20 Temperature from 08/31/2023 12:04 PM: * Temperature : 97.7 F * Site : Temporal
--- OUTSIDE RECORDS SUMMARY | 2023-11-24 18:31 | XMS_ITS | Referral Summary ---
Author Organization [facility] Address Unknown Care Team Providers Care Breaker Layer Name Role Phone SANDRA URIARTE Primary Care Physician Unavailab le Encounter PCSDT FINNBR [id number] Date(s): 03/14/17 - 03/14/17 [facility] [address] [place] [address] [facility] Discharge Disposition: Home Attending Physician: REJI BARON DO Vital Signs Most recent to oldest [Reference Range]: 1 2 Peripheral Pulse Rate [60-100 bpm] 111 b pm *HI* (03/14/17 4:58 PM) 120 bpm *HI* (03/14/17 2:38 PM) Respiratory Rate [12-20 br/min] 18 br/mi n (03/14/17 4:58 PM) 18 br/min (03/14/17 2:38 PM) Blood Pressure [90-140/60-90 mmHg] 149/9 5mmHg *HI* (03/14/17 4:58 PM) 144/98mmHg *HI* (03/14/17 2:38 PM) Mean Arterial Pressure, Cuff 113 mmHg (03/14/17 4:58 PM) SpO2 [94-100 %] 95 % (03/14/17 4:58 PM) 100 % (03/14/17 2:38 PM) Oxygen Therapy Room air (03/14/17 4:58 PM) Room air (03/14/17 2:38 PM) Temperature Oral [35.8-37.3 degC] 36.3 d egC (03/14/17 2:38 PM) Height/Length Dosing 190.50 cm (03/14/17 2:38 PM) Weight Dosing 126.3 kg (03/14/17 2:38 PM) Body Mass Index Dosing 35 (03/14/17 2:38 PM) Problem List Condition Effective Dates Status Health Status Inform ant Crohn's disease(Confirmed) Active Chronic hip pain(Confirmed) Active Diagnosis Diagnosis Type Effective Dates Health Status inical Service Informant Chronic hip pain Discharge Diagnosis 03/14/17 Non-Specified Allergies, Adverse Reactions, Alerts Substance Reaction Severity Status penicillins Active Medications labetalol = Trandate, Normodyne Date: 03/14/2017 14:46:00 EST Start Date: 03/14/17 Status: Ordered omeprazole ORAL, DAILY, Date: 03/14/2017 14:46:00 EST Start Date: 03/14/17 Status: Ordered oxyCODONE 10 mg oral tablet 10 mg 1 tabs, ORAL, [id number], PRN, Date: 03/14/2017 14:47:00 EST, Tablet Start Date: 03/14/17 Status: Ordered phenergan phenergan, Date: 03/14/2017 14:46:00 EST Start Date: 03/14/17 Status: Ordered Procedures Procedure Date Related Diagnosis Body Site Appendectomy. 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 Please return for any new or worsening sypmtoms. Address:Unknown When:3 to 5 days With:SANDRA URIARTE Address:Unknown When:3 to 5 days
--- OUTSIDE RECORDS SUMMARY | 2023-11-24 18:31 | XMS_ITS | Continuity of Care Document ---
Author Name Physician MD LIDYA [facility] Care Team Providers Care Installer Inspector Final Name Role Phone Non Staff, Physician Primary Care Provider [phone] Reason For Visit Chief Complaint URINARY SYMPTOMS Social History CCDA Social History from 08/31/2023 12:28 PM: * Tobacco Use? : Denies Ever Smoked Functional Status Vital Signs BP from 08/31/2023 12:11 PM: * BP : 162/90 Pulse from 08/31/2023 12:04 PM: * Pulse : 96 Pulse Ox from 08/31/2023 12:04 PM: * Pulse Ox (%) : 98 Respirations from 08/31/2023 12:04 PM: * Respirations : 20 Temperature from 08/31/2023 12:04 PM: * Temperature : 97.7 F * Site : Temporal Results Lab results are displayed in the following format if available: Test Name, Test Value, Value Unit, Reference Range - (exception is microbiology results) Example 1: Sodium 145 mEq/L (136-145 mEq/L) Example 2: Potassium: 3.4 mEq/L (Reference Range: not available) Problems Encounter Diagnosis Problems * Urgent Desire to Urinate Status:Active. * Urinary Frequency Status:Active. Provider * Urgent Desire to Urinate Status:Active. * Urinary Frequency Status:Active. Encounters Encounter Diagnosis Problems* Urgent Desire to Urinate Status:Active. * Urinary Frequency Status:Active. Provider* Urgent Desire to Urinate Status:Active. * Urinary Frequency Status:Active. Plan of Care Procedures No relevant procedures performed. IMMUNIZATIONS No immunizations administered. Hospital Course Hospital Discharge Instructions Allergies, Adverse Reactions, Alerts This section is videotape sales representative of the current allergy information, at [...] IV Contrast Allergy has not been assessed. Medication Medication reconciliation has not been performed.
--- OUTSIDE RECORDS SUMMARY | 2023-11-24 18:31 | XMS_ITS | Continuity of Care Document ---
Author Organization [facility] Address [address] [place] [address] Phone Care Team Providers Care Flat Breakdown Processor Name Role Phone PCP, UNKNOWN Primary Care Provider MD Willian Contreras Emergency Provider [phone] Allergies, Adverse Reactions, Alerts Allergen Type Severity Reaction Last Updated Verified Status diazepam Allergy Unknown December 14, 2022 5:57pm Yes Active Penicillins Allergy Unknown December 14, 2022 5:57pm Yes Active Social History Smoking Status Status Start Date End Date Date of Observa tion Unknown if ever smoked Augus t 2022 5:59pm Additional Data Assigned Sex Male Problems Active Problems Medical Problem Onset Date Status Abdominal pain Active Medications Medication Status Dose Units Route Directions Qty Days St art Date End Date Instructions Losartan Active 200 MG PO DAILY December 14, 2022 12:00am Oxycodone Active 5 MG PO EVERY 6 HOURS December 14, 2022 12:00am Procedures Procedure Date Performed Status EKG ED Electrocardiogram December 14, 2022 6:03p m active Relevant Diagnostic Tests and/or Laboratory Data Laboratory Results Test Date/Time Result Interpretation Reference Range Result Comment Performing Site White Blood Count December 14, 2022 6:12pm 3.9 X10 3/uL 4.5-11.0 [facility] [id number] [address] [place] [address] 32262 Red Blood Count December 14, 2022 6:12pm 4.51 X10 6/uL 4.00-5.50 [facility] [id number] [address] [place] [address] 29764 Hemoglobin December 14, 2022 6:12pm 13.9 g/dl 13.0-17.0 [facility] [id number] [address] [place] [address] 83369 Hematocrit December 14, 2022 6:12pm 41.1 % 37.5-50.0 [facility] [id number] [address] [place] [address] 92303 Mean Corpuscular Volume December 14, 2022 6:12pm 91.1 fl 80.0-100.0 [facility] [id number] [address] [place] [address] 51927 Mean Corpuscular Hemoglobin December 14, 2022 6:12pm 30.8 pg 27.0-34.0 [facility] [id number] [address] [place] [address] 08566 Mean Corpuscular Hemoglobin Concent December 14, 2022 6:12pm 33.8 g/dl 31.0-36.0 [facility] [id number] [address] [place] [address] 01946 Red Cell Distribution Width December 14, 2022 6:12pm 15.3 % 11.5-15.0 [facility] [id number] [address] [place] [address] 42539 Platelet Count December 14, 2022 6:12pm 93 X10 3/uL 150-400 Platelet count verified by smear review. [facility] [id number] [address] [place] [address] 52416 Immature Granulocyte % (Auto) December 14, 2022 6:12pm 0.3 % [facility] [id number] [address] [place] [address] 81256 Neutrophils (%) (Auto) December 14, 2022 6:12pm 65.2 % [facility] [id number] [address] [place] [address] 08746 Lymphocytes (%) (Auto) December 14, 2022 6:12pm 25.3 % [facility] [id number] [address] [place] [address] 19411 Monocytes (%) (Auto) December 14, 2022 6:12pm 6.1 % [facility] [id number] [address] [place] [address] 32980 Eosinophils (%) (Auto) December 14, 2022 6:12pm 1.8 % [facility] [id number] [address] [place] [address] 97711 Basophils (%) (Auto) December 14, 2022 6:12pm 1.3 % [facility] [id number] [address] [place] [address] 13837 Immature Granulocyte # (Auto) December 14, 2022 6:12pm 0.01 X10 3/uL 0.00-0.09 [facility] [id number] [address] [place] [address] 51986 Neutrophils # (Auto) December 14, 2022 6:12pm 2.6 X10 3/uL 1.5-7.8 [facility] [id number] [address] [place] [address] 22864 Lymphocytes # (Auto) December 14, 2022 6:12pm 1.0 X10 3/uL 1.0-4.8 [facility] [id number] [address] [place] [address] 16809 Monocytes # (Auto) December 14, 2022 6:12pm 0.2 X10 3/uL 0.0-0.8 [facility] [id number] [address] [place] [address] 72582 Eosinophils # (Auto) December 14, 2022 6:12pm 0.1 X10 3/uL 0.0-0.5 [facility] [id number] [address] [place] [address] 38350 Basophils # (Auto) December 14, 2022 6:12pm 0.1 X10 3/uL 0.0-0.2 [facility] [id number] [address] [place] [address] 73119 Nucleated Red Blood Cells % December 14, 2022 6:12pm 0.0 /100 WBC 0.0-0.0 [facility] [id number] [address] [place] [address] Sodium Level December 14, 2022 6:12pm 138 mmol/L 137-146 [facility] [id number] [address] [place] [address] 32363 Potassium Level December 14, 2022 6:12pm 4.0 mmol/L 3.5-5.3 [facility] [id number] [address] [facility] [address] Chloride Level December 14, 2022 6:12pm 105 mmol/L 98-107 [facility] [id number] [address] [place] [address] 16927 Carbon Dioxide Level December 14, 2022 6:12pm 23 mmol/L 23-32 [facility] [id number] [address] [place], [place] [address] Anion Gap December 14, 2022 6:12pm 10 mmol/L 5-15 [facility] [id number] [address] [place] [address] 79238 Blood Urea Nitrogen December 14, 2022 6:12pm 10 mg/dl 5-25 [facility] [id number] [address] [place] [address] 23491 Creatinine December 14, 2022 6:12pm 0.9 mg/dL 0.6-1.4 [facility] [id number] [address] [place] [address] Estimated Creatinine Clearance December 14, 2022 6:12pm 146.5 ml/min This value is calculated by Cockcroft Gault Equation using ideal body weight. This result is dependent on an accurate patient height and weight which is obtained from patients medical record. Kpoferic, Aniyah.W. and M.H. Meliton. Prediction of creatinine clearance from serum creatinine. Nephron. 1976. 16(1):31-41. [facility] [id number] [address] [place] [address] Estimat Glomerular Filtration Rate December 14, 2022 6:12pm 106 >90 Reported eGFR is based on the CKD-EPI 2020 equation that does not use a race coefficient. Additional information can be found at: 1_icb_egfr_s SaleStream_flyer 5.pdf (kidney.org) [facility] [id number] [address] [place], [place] [address] BUN/Creatinine Ratio December 14, 2022 6:12pm 11.1 10.0-20.0 [facility] [id number] [address] [place], [place] [address] Glucose Level December 14, 2022 6:12pm 100 mg/dL 70-100 [facility] [id number] [address] [place] [address] 79541 Calcium Level December 14, 2022 6:12pm 8.8 mg/dl 8.6-10.3 [facility] [id number] [address] [place] [address] 96106 Total Bilirubin December 14, 2022 6:12pm 1.0 mg/dl <1.1 [facility] [id number] [address] [place] [address] 92964 Aspartate Amino Transf (AST/SGOT) December 14, 2022 6:12pm 20 U/L 15-41 [facility] [id number] [address] [place] [address] 22513 Alanine Aminotransferase (ALT/SGPT) December 14, 2022 6:12pm 15 U/L 14-63 [facility] [id number] [address] [place] [address] 54012 Total Protein December 14, 2022 6:12pm 7.1 g/dL 6.4-8.3 [facility] [id number] [address] [place] [address] 86076 Albumin December 14, 2022 6:12pm 3.5 g/dl 4.0-5.0 [facility] [id number] [address] [place] [address] 62710 Albumin/Globulin Ratio December 14, 2022 6:12pm 1.0 1.0-2.6 [facility] [id number] [address] [place] [address] 30460 Alkaline Phosphatase December 14, 2022 6:12pm 112 U/L 40-129 [facility] [id number] [address] [place] [address] 07573 Lipase December 14, 2022 6:12pm 23 U/L 13-60 [facility] [id number] [address] [place] [address] 01554 Vital Signs Vital Reading Result Reference Range Collection Date/Time Height 193.04 cm December 14 5:59pm Weight 125.00 kg December 14 5:59pm Body Temperature 98.5 [degF] 97.6-99.6 December 5:59pm Heart Rate 88 /min 60-90 December 14 5:59pm Respiratory rate 16 /min 12-24 December 5:59pm Oxygen saturation by Pulse oximetry 97 % 95-100 December 14, 2022 5: 59pm BP Systolic 170 mm[Hg] 90-140 December 14 5:59pm BP Diastolic 106 mm[Hg] 60-90 December 14 5:59pm BMI (Body Mass Index) 33.5 kg/m2 December 14, 2022 5:59pm Advance Directives Advance Directive Response Recorded Date/ Time Advance Directives No December 14, 2022 5:38pm Health Care Proxy No December 14, 2 023 5:38pm Insurance Providers Guarantor Obed Bernstein Address [address] [place] [address] Contact Info. Home Phone: Payer Policy Id Coverage Id Subscriber's Name Subscriber Id Effective Date Expiration Date [facility] Medicare Advantage [id number] Obed Bernstein [id number] Encounters Encounter Location(s) Arrival/Admit Date Discharge/Depart Date Provider(s) Departed Emergency [facility] December 14, 2022 5:32pm December 14, 2022 8:54pm null Plan of Treatment Future Tests Future scheduled test information is unavailable Pending Tests Pending diagnostic test information is unavailable Future Visits Future appointment information is unavailable Referrals to Other Providers Reason for Referral Referral Start Date Provider Provider Contact Information Provider Address UNKNOWN PCP Future Procedures Procedure Name Ordered Date Scheduled Date EKG ED Electrocardiogram December 14, 2022 6:03p m December 14, 2022 6:03pm Saline Lock Insert/Manage December 14, 2022 6:03 pm December 14, 2022 6:03pm Future Medications Future medication information is unavailable Patient Instructions Patient instructions are unavailable
--- OUTSIDE RECORDS SUMMARY | 2023-11-24 18:31 | XMS_ITS ---
Author Name Physician MD LIDYA [facility] Care Team Providers Care Manager Student Services Name Role Phone Non Staff, Physician Primary Care Physician [phone] Problems Encounter Diagnosis Problems * Urgent Desire to Urinate Status:Active. * Urinary Frequency Status:Active. Provider * Urgent Desire to Urinate Status:Active. * Urinary Frequency Status:Active. Encounter Diagnosis Problems * Urgent Desire to Urinate Status:Active. * Urinary Frequency Status:Active. Provider * Urgent Desire to Urinate Status:Active. * Urinary Frequency Status:Active. Allergies and Intolerances This section is sales representative church furniture of the current allergy information, at the [...]
--- OUTSIDE RECORDS SUMMARY | 2023-11-24 18:31 | XMS_ITS | Continuity of Care Document ---
Author Name Physician MD LIDYA [facility] Care Team Providers Care Otc Clerk Name Role Phone Non Staff, Physician Primary Care Provider [phone] Reason For Visit Chief Complaint URINARY SYMPTOMS [...] Allergies, Adverse Reactions, Alerts This section is district representative of the current allergy information, at [...]
== END 2023-11-24 18:31 | disposition left against medical advice (07) ==
PROVIDERS: Physician Assistant Medical; Emergency Provider Emergency Medicine
DX: R07.89 Other chest pain (principal); R10.9 Unspecified abdominal pain; M54.50 Low back pain, unspecified; Z03.818 Encounter for observation for suspected exposure to other biological agents ruled out; Z79.899 Other long term (current) drug therapy
CPT/HCPCS: 0241U; 80048; 80076; 83690; 83735; 84484; 85025; 93005; 99283

== ENCOUNTER → 2023-11-24 15:39 | Outpatient (BNV) | payer SELFPAY | PROVIDERS: Emergency Provider Emergency Medicine; Visit Provider Internal Medicine | DX: R94.31 Abnormal electrocardiogram [ECG] [EKG] (principal) | CPT/HCPCS: 93010 ==